=== PATIENT | male | born 1950 | race Caucasian/White ===

== ENCOUNTER 2020-10-18 16:16 | Emergency (ER) | payer MEDICARE, SELFPAY ==
--- NOTE | 2020-10-18 16:23 | ED.URI ---
HPI - URI/Sore Throat General Chief Complaint: Upper Respiratory Infection Stated Complaint: Poss sinus infectionn, nose bleed, cough Time Seen by Provider: 10/18/20 16:30 Source: patient and RN notes reviewed Mode of arrival: ambulatory Limitations: no limitations History of Present Illness HPI Narrative: 70-year-old male with history of dementia, COPD, emphysema presents with concern for 1 week history of cough, nasal congestion, sinus drainage with occasional blood-tinged nasal sputum. Reports he is fully vaccinated for Covid. Reports he has been using Claritin with little relief, denies any other intervention. Denies shortness of breath, sore throat, body aches, chills, sweats, loss of sense of taste or smell. MD elicited complaint: cough and nasal congestion Related Data Home Medications Medication Instructions Recorded Confirmed diltiazem HCl 120 mg PO DAILY 10/18/20 10/18/20 gabapentin 600 mg PO BID 10/18/20 10/18/20 hydrocodone-acetaminophen 1 tablet PO Q6-8H PRN 10/18/20 10/18/20 lisinopril 20 mg PO DAILY 10/18/20 10/18/20 sertraline 50 mg PO DAILY 10/18/20 10/18/20 Allergies Allergy/AdvReac Type Severity Reaction Status Date / Time No Known Allergies Allergy Verified 10/18/20 16:20 Review of Systems Review of Systems: Narrative: CONSTITUTIONAL: Denies malaise, chills, sweats, or fever. EYES: Denies visual changes, redness, or discharge. ENT: Reports rhinorrhea, congestion. Denies sinus pain, otalgia and sore throat. CARDIOVASCULAR: Denies chest pain, palpitations, or edema. RESPIRATORY: Reports cough. Denies dyspnea. GASTROINTESTINAL: Denies abdominal pain, nausea, vomiting, diarrhea SKIN: Denies rash or itching. MUSCULOSKELETAL: Denies myalgia. NEUROLOGIC: Denies headache. All systems reviewed & are unremarkable except as noted in HPI and below PMFSH Comments At time of signature, agree with nursing past medical, surgical, social and family history. There is no relevant family history pertinent to the presenting complaint Exam Narrative: Exam Narrative: GENERAL: Well-appearing, well-nourished, and in no acute distress. HEAD: Normocephalic EYES: PERRLA, conjunctivae clear ENT: Nares clear, turbinates erythematous, clear discharge. Mucous membranes moist. TM pearly field with dull light reflex bilaterally; no tragal tenderness. Oropharynx not erythematous without lesions. Tonsils not enlarged and without exudate, no drooling, no hoarseness, no trismus, uvula midline. NECK: Supple. No lymphadenopathy CHEST: Breath sounds equal with scattered wheezing, rhonchi. No rales, or stridor. No respiratory distress, speaks in full sentences. HEART: Regular rate and rhythm. No murmur heard. SKIN: Warm, dry, no rash. NEURO: Alert and oriented x3. PSYCH: Normal mood and affect Course Course Emergency Course: Patient is aware of diagnosis, understands and agrees to treatment plan. Anticipatory guidance given. Patient agrees to follow-up as directed and is aware of reasons to seek care at the emergency department. Portions of this record may have been created with voice recognition software Vital Signs Vital signs: Vital Signs Temperature 98.4 F 10/18/20 16:26 Pulse Rate 72 10/18/20 16:26 Respiratory Rate 20 10/18/20 16:26 Blood Pressure 107/60 10/18/20 16:26 Pulse Oximetry 99 10/18/20 16:26 Temperature 98.4 F 10/18/20 16:26 Pulse Rate 72 10/18/20 16:26 Respiratory Rate 20 10/18/20 16:26 Blood Pressure 107/60 10/18/20 16:26 Pulse Oximetry 99 10/18/20 16:26 Reviewed. MDM - URI/Sore Throat MDM Narrative Medical decision making narrative: Differential diagnosis considered: COPD exacerbation, [place] virus, strep pharyngitis, allergic rhinitis, upper respiratory tract infection, sinusitis, rhinosinusitis, nasopharyngitis. viral pharyngitis, otitis media, otitis externa, pneumonia, bronchitis, viral cough syndrome, viral syndrome, and influenza. Exam findings show no acute concerns
[2020-10-18 16:26] VITALS: BP 107/60; PULSE 72; RESP 20; TEMP 36.9; O2SAT 99
== END 2020-10-18 16:45 | disposition home or self-care (01) ==
PROVIDERS: Emergency Provider Nurse Practitioner; PCP Internal Medicine
DX: J44.1 Chronic obstructive pulmonary disease with (acute) exacerbation (principal); F03.90 Unspecified dementia, unspecified severity, without behavioral disturbance, psychotic disturbance, mood disturbance, and anxiety; I25.10 Atherosclerotic heart disease of native coronary artery without angina pectoris; I10 Essential (primary) hypertension; F41.9 Anxiety disorder, unspecified
CPT/HCPCS: 99213; G0463